=== PATIENT | female | born 1950 | race Caucasian/White ===

== ENCOUNTER 2020-08-18 10:57 | Inpatient (IN) | payer MEDICARE ==
[~2020-08-18] VITALS: Ht 165.1 cm; Wt 62.6 kg
[2020-08-18] MEDS ORDERED: SODIUM CHLORIDE 0.9% 1,000 ML IVB ONE (11:30)
[2020-08-18] MEDS ORDERED: cefTRIAXone 1GM/50ML D5W 50 ML IV ONE (12:15)
[2020-08-18 12:29] LABS: Blood Urea Nitrogen 42 mg/dL (7-18); Calcium 8.4 mg/dL (8.5-10.1); Chloride 110 mmol/L (98-107); Potassium 4.5 mmol/L (3.5-5.1); Sodium 148 mmol/L (136-145)
[2020-08-18 12:30] LABS: Lactic Acid w/Reflex 4.5 mmol/L (0.4-2.0)
[2020-08-18 12:37] LABS: INR 1.03 (0.9-1.15); Partial Thromboplastin Time 22.8 sec (23.0-31.2)
[2020-08-18 12:38] LABS: Alanine Aminotransferase 37 U/L (13-56); Albumin 2.2 g/dL (3.4-5.0); Alkaline Phosphatase 185 U/L (45-117); Anion Gap 7 (5-15); Aspartate Aminotransferase 40 U/L (15-37); BUN/Creatinine Ratio 39.3; Bilirubin, Total 0.4 mg/dL (0.2-1.0); Carbon Dioxide 31 mmol/L (21-32); GFR African American 65 mL/min; GFR Non-African American 54 mL/min; Glucose 395 mg/dL (74-106); Magnesium 2.5 mg/dL (1.6-2.6); Total Protein 6.5 g/dL (6.4-8.2)
[2020-08-18] MEDS ORDERED: LOSA-69 PO (12:51)
[2020-08-18] MEDS ORDERED: PHEN125S GT (12:51)
[2020-08-18] MEDS ORDERED: LEVE100S9 PO (12:51)
[2020-08-18] MEDS ORDERED: LACO10SO3 PO (12:51)
[2020-08-18] MEDS ORDERED: LEVEMIR SC (12:51)
[2020-08-18 13:17] LABS: Urine Bacteria FEW /hpf (None Seen); Urine Blood 2+ /uL (Negative); Urine Budding Yeast MODERATE /hpf (None Seen); Urine Specific Gravity 1.013 (1.001-1.035); Urine WBC 1310 /hpf (0 - 5); Urine WBC Clumps PRESENT /hpf (None Seen)
[2020-08-18 13:53] LABS: Hematocrit 43.5 % (36.0-46.0); Hemoglobin 13.9 g/dL (12.2-16.2); Mean Corpuscular Hemoglobin 31.4 pg (28.0-32.0); Mean Corpuscular Volume 98.1 fL (80.0-100.0); Platelet Count (auto) 234 10^3/uL (140-450); Red Blood Cells 4.43 10^6/uL (4.0-5.20); Red Cell Distribution Width 14.6 % (11.8-14.3)
[2020-08-18 13:56] LABS: White Blood Cell 49.1 10^3/uL (4.4-10.8)
[2020-08-18 13:59] LABS: Basophils % (manual) 0 (0.0-2.0); Blast Cells 0; Eosinophils % (manual) 0 (0-7); Metamyelocytes % 0; Myelocytes % 0; Promyelocytes % 0; Reactive Lymphocytes 0
[2020-08-18 14:29] LABS: Band Neutrophils % (manual) 4; Lymphocytes % (manual) 2 (10.0-50.0); Monocytes % (manual) 3 (0-12)
[2020-08-18] MEDS ORDERED: MORPHINE SULF INJ 2 MG/ML SYRINGE 1ML IV PRN (15:45)
[2020-08-18] MEDS ORDERED: LORazepam 2MG/ML-1ML VIAL IV PRN (15:45)
[2020-08-18] MEDS: SODIUM CHLORIDE 0.9% 1,000 ML IV SCH (15:56)
[2020-08-18 17:05] VITALS: BP 98/42
[2020-08-18 18:45] VITALS: BP 80/39
[2020-08-18 22:00] VITALS: BP 80/39
[2020-08-19] MEDS: SODIUM CHLORIDE 0.9% 1,000 ML IV SCH (01:32)
[2020-08-19] MEDS ORDERED: levoFLOXacin 500MG 100 ML IV SCH (10:00)
[2020-08-19] MEDS ORDERED: PANTOPRAZOLE 40 MG/10 ML VIAL INJ IV SCH (10:00)
== END 2020-08-19 04:03 | DRG 871 ==
LOC: ER 10:57 → EDBD 10:57 → UNDOADMIN 15:31 → TELE 15:31 → TELE-CENTR 15:31
PROVIDERS: ADMIT Nurse Practitioner Acute Care; ATTEND Nurse Practitioner Acute Care
DX: A41.9 Sepsis, unspecified organism (principal); G93.41 Metabolic encephalopathy; J96.01 Acute respiratory failure with hypoxia; N17.0 Acute kidney failure with tubular necrosis; E87.0 Hyperosmolality and hypernatremia; Z66 Do not resuscitate; L89.152 Pressure ulcer of sacral region, stage 2; E86.0 Dehydration; R91.8 Other nonspecific abnormal finding of lung field; G40.909 Epilepsy, unspecified, not intractable, without status epilepticus; E11.9 Type 2 diabetes mellitus without complications; E78.5 Hyperlipidemia, unspecified; I10 Essential (primary) hypertension; R65.20 Severe sepsis without septic shock; Z79.4 Long term (current) use of insulin; Z79.899 Other long term (current) drug therapy
CPT/HCPCS: 36415; 71045; 80053; 81001; 83605; 83735; 84484; 85007; 85025; 85027; 85610; 85730; 87040; 87426; 93005; 96365; 99291; G0378; J0696